=== PATIENT | female | born 1950 | race Caucasian/White ===

== ENCOUNTER 2022-03-03 08:52 | Outpatient (CLI) | payer MEDICARE, SELFPAY ==
--- OUTSIDE RECORDS SUMMARY | 2022-03-03 08:55 | XMS_ITS | Encounter Summary ---
:1950 Author Organization [facility] Address [address] [place] [address] Care Team Providers Name Role Phone Unavailable Primary Care Provider Unavailable Encounter Details Date Type Department Care Team Description 02/22/2016 Hospital Encounter HX RST DERM SURG OP Bella Patel, [facility] Jocelyn [address] [place], [place] [address] (Wo rk) Social History Tobacco Use Types Packs/Day Years Used Date Smoking Tobacco: Never Assessed Alcohol Habits Answer Date Recorded How often do you have a drink containing alcohol? 2-4 times a month 02/10/2022 How many drinks containing alcohol do you have on a Patient refused 02/10/2022 typical day when you are drinking? How often do you have six or more drinks on one Never 02/10/2022 occasion? Social Isolation Answer Date Recorded In a typical week, how many times do you More than three lyle es a week 02/10/2022 talk on the phone with family, friends, or neighbors? How often do you get together with friends More than three t imes a week 02/10/2022 or relatives? How often do you attend restoration or More than 4 times per year 02/10/2022 tenriism services? Do you belong to any clubs or Yes 02/10/2022 organizations such as restoration groups, unions, fraternal or athletic groups, or school groups? How often do you attend meetings of the Patient refused 02/10/2022 clubs or organizations you belong to? Are you now , , , 02/10/2022 , never or living with a partner? Physical Activity Answer Date Recorded On average, how many days per week do you engage in moderate to 7 days 02/10/2022 strenuous exercise (like walking fast, running, jogging, dancing, swimming, biking, or other activities that cause a light or heavy sweat)? On average, how many minutes do you engage in exercise at th is 50 min 02/10/2022 level? Stress Answer Date Recorded Do you feel stress - tense, restless, nervous, or anxious, R ather much 02/10/2022 or unable to sleep at night because your mind is troubled all the time - these days? Financial Resource Strain Answer Date Recorded How hard is it for you to pay for the very basics like Not h ricki at all 02/10/2022 food, housing, medical care, and heating? Intimate Partner Violence Answer Date Recorded Within the last year, have you been afraid of your partner o r No 02/10/2022 ex-partner? Within the last year, have you been humiliated or emotionall y Yes 02/10/2022 abused in other ways by your partner or ex-partner? Within the last year, have you been kicked, hit, slapped, or No 02/10/2022 otherwise physically hurt by your partner or ex-partner? Within the last year, have you been raped or forced to have any No 02/10/2022 kind of sexual activity by your partner or ex-partner? Food Insecurity Answer Date Recorded Within the past 12 months, you worried that your food would Never true 02/10/2022 run out before you got money to buy more. Within the past 12 months, the food you bought just didn't N ever true 02/10/2022 last and you didn't have money to get more. Transportation Needs Answer Date Recorded In the past 12 months, has lack of transportation kept you f rom No 02/10/2022 medical appointments or from getting medications? In the past 12 months, has lack of transportation kept you f rom No 02/10/2022 meetings, work, or getting things needed for daily living? Housing Stability Answer Date Recorded In the last 12 months, was there a time when you were not ab le No 02/10/2022 to pay the mortgage or rent on time? In the last 12 months, how many places have you lived? 1 02/10/2022 In the last 12 months, was there a time when you did not hav e a No 02/10/[address] or slept in a prison (including now)? Sex Assigned at Date Recorded Female 02/16/2019 8:52 AM CDT documented as of this encounter Last Filed Vital Signs Vital Sign Reading Time Taken Comments Blood Pressure 127/79 02/22/2016 7:50 AM CDT Vital sign result from Clinical Notes. Pulse 56 02/22/2016 7:50 AM CDT Vital sign result from Clinical Notes. Temperature - - Respiratory Rate - - Oxygen Saturation - - Inhaled Oxygen Concentration - - Weight - - Height - - Body Mass Index - - documented in this encounter Plan of Treatment Not on filedocumented as of this encounter Visit Diagnoses Not on filedocumented in this encounter
--- OUTSIDE RECORDS SUMMARY | 2022-03-03 08:55 | XMS_ITS | Clinical Summary ---
:1950 Author Organization [facility] Address [address] [place] [address] Care Team Providers Name Role Phone Unavailable Primary Care Provider Unavailable Source Comments Patient records contain information from all sites at [facility]. For routine questions regarding patient records, call [phone] during business hours, M-F 8:00 AM - 5:00 PM Central Time. Record requests for emergency care only can be directed to [phone] at any time.[facility] Allergies No known active allergies Medications Medication Sig Dispensed Refills Start Date End Date Status simvastatin (ZOCOR) 10 Take by mouth 3 11/05/2017 Active mg tablet daily. multivitamin tablet Take 1 tablet by 0 Active mouth daily. fish oil 500 mg capsule Take 500 mg by 0 Active mouth daily. calcium Chew. 0 Active carbonate-vitamin D3 600 mg-10 mcg (400 unit) tablet,chewable alendronate (FOSAMAX) Take 70 mg by 0 02/14/2019 Active 70 mg tablet mouth once a week. vit Take 2 tablets by 0 01/20/2021 A ctive C/E/Zn/coppr/lutein/tra mouth daily. zachery (PRESERVISION AREDS-2 ORAL) Encounters Date Type Specialty Care Team Description 02/14/2022 Office Visit Dermatology Javier Gonzalez M.D. Nevi M ultiple (Primary Dx); Keratosis Sebor rheic from Last 3 Months Family History Medical History Relation Name Comments Skin cancer Brother 1 Skin cancer Brother 2 Relation Name Status Comments Brother 1 Brother 2 Social History Tobacco Use Types Packs/Day Years Used Date Smoking Tobacco: Never Smokeless Tobacco: Never Alcohol Habits Answer Date Recorded How often [...] or relatives? How often do you attend holiness or More than 4 times per year 02/10/2022 rastafari services? Do you belong to any clubs or Yes 02/10/2022 organizations such as holiness groups, unions, fraternal or athletic groups, or [...] place to sleep or slept in a detention (including now)? Education Answer Date Recorded What is the highest level of school you have completed or 12 th grade 12/28/2020 the highest degree you have received? Sex Assigned at Date Recorded Female 02/16/2019 8:52 AM CDT Last Filed Vital Signs Vital Sign Reading Time Taken Comments Blood Pressure 127/79 02/22/2016 7:50 AM CDT Vital sign result from Clinical Notes. Pulse 56 02/22/2016 7:50 AM CDT Vital sign result from Clinical Notes. Temperature - - Respiratory Rate - - Oxygen Saturation - - Inhaled Oxygen Concentration - - Weight - - Height - - Body Mass Index - - Plan of Treatment Health Maintenance Due Date Last Done Comments Bone Density Scan (Osteoporosis 1950 Screen) CT Colonography 1950 Cologuard 1950 FIT 1950 Fasting Glucose for Diabetes 1950 Screening Hepatitis C Screening 1950 Mammogram 05/26/2006 05/26/2005, 04/08/2004, 04/25/2003 Colonoscopy 05/22/2013 05/22/2003 Colorectal Cancer Screening 05/22/2013 Depression Screening (Annual 05/01/2021 PHQ-2) Fall Risk Screen (Annual) 05/01/2021 COVID-19 Vaccine (5 - Booster for 11/26/2021 10/01/2021, , Moderna series) 07/16/2020, Additional history exists Influenza Vaccine (#1) 2022 03/01/2021, 02/20/2020, 02/14/2019, Additional history exists DTaP,Tdap,and Td Vaccines (4 - Td 03/01/2031 03/01/2021, , or Tdap) 07/05/2011, Additional history exists Pneumococcal vaccine (65+ years) Completed 02/14/2019, 10/2017 Zoster Vaccines Completed 04/21/2019, 02/06/2019, 02/01/2019, Additional history exists Insurance Payer Benefit Plan Subscriber ID Effective Phone Address Typ e / Group Dates MEDICARE MEDICARE A [id number] 2017-Pres [address] [place] [address] BLUE CROSS BCBS [place] [id number] 2017-Pres [phone] PO IRIS X Cost Share BLUE SHIELD BLUE COST ent [phone] [place] [address]
--- OUTSIDE RECORDS SUMMARY | 2022-03-03 08:55 | XMS_ITS | Encounter Summary ---
:1950 Author Organization [facility] Address [address] [place] [address] Care Team Providers Name Role Phone Unavailable Primary Care Provider Unavailable Encounter Details Date Type Department Care Team Description 05/22/2003 Hospital Encounter HX NO MAPPING Social History Tobacco Use Types Packs/Day Years [...] or relatives? How often do you attend congregational or More than 4 times per year 02/10/2022 jehovah's witness services? Do you belong to any clubs or Yes 02/10/2022 organizations such as congregational groups, unions, fraternal or athletic groups, or [...] AM CDT documented as of this encounter Plan of Treatment Not on filedocumented as of this encounter Visit Diagnoses Not on filedocumented in this encounter
--- OUTSIDE RECORDS SUMMARY | 2022-03-03 08:55 | XMS_ITS | Encounter Summary ---
:1950 Author Organization [facility] Address [address] [place] [address] Care Team Providers Name Role Phone Unavailable Primary Care Provider Unavailable Reason for Visit Reason Comments Skin Check Outpatient (Routine) - Closed Specialty Diagnoses / Procedures Referred By Contact Refer red To Contact Dermatology Javier Gonzalez M.D . [facility] Region [address] [place] [phone] Referral ID Status Reason Start Date Expiration Date Visits Requ ested Visits Authorized [id number] Closed 02/18/2019 02/18/2020 1 1 Encounter Details Date Type Department Care Team Description 02/03/2020 Office Visit Department of Javier Gonzalez, Bere Headley ple (Primary Dx); Dermatology in [place] Keratosis Seborrheic; [place], [place] [address] [facility] Cancer Skin Basal Cell Personal History [address] [place] [phone] Social History Tobacco Use Types Packs/Day Years [...] or relatives? How often do you attend hinduism or More than 4 times per year 02/10/2022 hindu services? Do you belong to any clubs or Yes 02/10/2022 organizations such as hinduism groups, unions, fraHeyStaks or athletic groups, or school groups? How [...] place to sleep or slept in a longterm (including now)? Sex Assigned at Date Recorded Female 02/16/2019 8:52 AM CDT documented as of this encounter Progress Notes Javier Gonzalez M.D. - 02/03/2020 9:00 AM CDT SUBJECTIVE CHIEF COMPLAINT / REASON FOR VISIT Skin cancer recheck HISTORY OF PRESENT ILLNESS Ms. Annamarie Bhat is a 69 y.o. female who presents today for a full skin cancer screening examination. The patient was last seen by me in Dermatology clinic on 02/18/2019 at which time she was seen for a recheck of several nevi which we felt were benign. 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 Patel at [facility] on 02/22/16. The patientdenies a personal or family history for melanoma. She reports regular use of sunscreen spf 30+. No Known Allergies MEDICAL HISTORY 1. Nasal tip: Nodular basal cell carcinoma, status post Mohs surgery and full- thickness skin graft closure by Dr. Patel at [facility] on 02/22/16 ?? FAMILY HISTORY No family history for melanoma OBJECTIVE PHYSICAL EXAMINATION General: Awake, alert, in no acute distress, and with appropriate affect. Eyes: No scleral injection or icterus. No eyelid abnormalities. Lymph: No lower extremity edema. Skin: I have examined the scalp, face, neck, chest, abdomen, back, bilateral upper extremities, and bilateral lower extremities. My scribe Radha was present for the full exam today. Examination of the left lateral buttock reveals a 2 mm x 2.5 mm brown nevus with slight asymmetry which looks benign on clinical exam and dermsocopy. Examination of the right superior buttock reveals a3.5 mm x 3.5 mm uniformly pigmented brown nevus which looks benign on clinical exam and dermoscopy. Examination of the nasal tip reveals a graft with no clinical evidence for local recurrence of bcc. Examination of face, trunk, and extremities reveals multiple benign appearing nevi and lentigines, and multiple seborrheic keratosis,including several flat SKs involving the face. Examination of the right triceps reveals a dermatofibroma. Examination today reveals no suspicious lesions for skin cancer. ASSESSMENT / PLAN #1 Face, trunk, and extremities : Multiple benign appearing nevi and lentigines The ABCDE criteria for melanoma was reviewed with the patient. None of the patient's nevi reach the clinical threshold for biopsy. I recommend continued sun protection, self-skin examinations, and observation. Should any of the patient's nevi change in size, color, texture, or shape or develop symptoms such as itching or bleeding, I recommend an immediate return visit for reassessment. #2 Face, trunk, and extremities: Seborrheic keratosis The benign nature of the skin lesion(s) was discussed with the patient. No treatment is required. I recommend continued observation. Should symptoms or changes develop related to this condition, I would recommend a return visit for reassessment. #3 Nasal tip: History of nodular basal cell carcinoma status post Mohs surgery and full-thickness skin graft closure by Dr. Patel at [facility] on 02/22/16, no recurrence Examination today reveals no clinical evidence of recurrence. Follow up immediately if changes are noticed during monthly self examination. Otherwise followup in 6 months. PATIENT EDUCATION: Ready to learn. No apparent learning barriers were identified. Learning preferences include listening. Explained diagnosis and treatment plan; patient/guardian of patient expressed understanding of thecontent. By signing my name below, I, Rosalina Ray, attest that this documentation has been prepared underthe direction and in the presence of Javier Gonzalez M.D. Electronically Signed: manjula Key. 02/03/2020. I, Javier Gonzalez M.D., personally performed the services described in this documentation. All medical record entries made by the scribe were at my direction and in my presence. I have reviewed the chart and discharge instructions (if applicable) and agree that the record reflects my personal performance and is accurate and complete. Javier Gonzalez M.D. 02/02. documented in this encounter Plan of Treatment Not on filedocumented as of this encounter Visit Diagnoses Diagnosis Nevi Multiple - Primary Keratosis Seborrheic Cancer Skin Basal Cell Personal History documented in this encounter
--- OUTSIDE RECORDS SUMMARY | 2022-03-03 08:55 | XMS_ITS | Encounter Summary ---
:1950 Author Organization [facility] Address [address] [place] [address] Care Team Providers Name Role Phone Unavailable Primary Care Provider Unavailable Reason for Referral Outpatient (Routine) - Closed Specialty Diagnoses / Procedures Referred By Contact Refer red To Contact Dermatology [facility] Gonzalez [facility].D . [facility] [address] [place] [phone] Referral ID Status Reason Start Date Expiration Date Visits Requ ested Visits Authorized [id number] Closed 02/18/2019 02/18/2020 1 1 Scheduling Instructions Skin cancer recheck exam in 6 months Reason for Visit Reason Comments Follow-up spot on buttocks Outpatient (Routine) - Closed Specialty Diagnoses / Procedures Referred By Contact Refer red To Contact Dermatology Javier Gonzalez M.D . [facility] Region [address] [place] [phone] Referral ID Status Reason Start Date Expiration Date Visits Requ ested Visits Authorized [id number] Closed 10/01/2018 10/01/2019 1 1 Encounter Details Date Type Department Care Team Description 02/18/2019 Office Visit Department of Javier Gonzalez Nevi Multi ple (Primary Dermatology in [place] ) [place], [place] [address] [place] [phone] Social History Tobacco Use Types Packs/Day Years [...] or relatives? How often do you attend baptist or More than 4 times per year 02/10/2022 latter day services? Do you belong to any clubs or Yes 02/10/2022 organizations such as baptist groups, unions, fraternal or athletic groups, or [...] place to sleep or slept in a usp (including now)? Sex Assigned at Date Recorded Female 02/16/2019 8:52 AM CDT documented as of this encounter Progress Notes Javier Gonzalez M.D. - 02/18/2019 9:45 AM CDT SUBJECTIVE CHIEF COMPLAINT/REASON FOR VISIT Recheck lesion involving left lateral buttock HISTORY OF PRESENT ILLNESS Ms. Annamarie Bhat is a 68 y.o. female who presents for recheck of a lesion involving the left lateral buttock. During our last visit on 10/01/18, the lesion was said to be a benign-appearing nevus with slight asymmetry. 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 Patel at [facility]. 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 The patient denies a personal or family history for melanoma. No new or changing lesions are noted today. No Known Allergies MEDICAL HISTORY 1. Nodular basal cell carcinoma involving nasal tip, status post Mohs surgery and full-thickness skin graft closure by Dr. Patel at [facility] on 02/22/16 2. Negative for melanoma FAMILY HISTORY No family history for melanoma OBJECTIVE PHYSICAL EXAMINATION General: Awake, alert, in no acute distress, and with appropriate affect. Skin: Examination of the left lateral buttock reveals a 2 mm x 2.5 mm brown nevus with slight asymmetry. Examination of the right superior buttock reveals a 3.5 mm x 3.5 mm uniformly pigmented brown nevus. My nurse done served as a model maker fiberglass during the exam. ASSESSMENT/PLAN #1 Left lateral buttock and right superior buttock: Benign nevi The ABCDE criteria for melanoma was reviewed with the patient. None of the patient's nevi reach the clinical threshold for biopsy. I recommend continued sun protection, self-skin examinations, and observation. Should any of the patient's nevi change in size, color, texture, or shape or develop symptoms such as itching or bleeding, I recommend an immediate return visit for reassessment. Follow up in July 2019 for recheck of the stated lesions as well as a full skin cancer screening, or immediately if any new or changing lesions are noted. PATIENT EDUCATION: Ready to learn. No apparent learning barriers were identified. Learning preferences include listening. Explained diagnosis and treatment plan; patient/guardian of patient expressed understanding of thecontent. By signing my name below, Deric Millan, attest that this documentation has been prepared under thedirection and in the presence of Javier Gonzalez M.D. Electronically Signed: manjula Guerrero. 02/18/2019. 9:45 AM. Javier Millan M.D., personally performed the services described in this documentation. All medical record entries made by the scribe were at my direction and in my presence. I have reviewed the chart and discharge instructions (if applicable) and agree that the record reflects my personal performance and is accurate and complete. Javier Gonzalez M.D. . 02/18/2019. 9:46 AM. documented in this encounter Plan of Treatment Scheduled Referrals Name Type Priority Associated Order Schedule Diagnoses Dermatology office Outpatient Referral Routine Ex pected: visit (clinic) 08/20/2019 (Approximate), Expires: 02/18/2022 documented as of this encounter Visit Diagnoses Diagnosis Nevi Multiple - Primary documented in this encounter
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
--- OUTSIDE RECORDS SUMMARY | 2022-03-03 08:55 | XMS_ITS | Encounter Summary ---
:1950 Author Organization [facility] Address [address] [place] [address] Care Team Providers Name Role Phone Unavailable Primary Care Provider Unavailable Reason for Visit Reason Comments Lesion small white speck noted near side of former BCC on nose so back for reassessment Appointment Request (Routine) - Closed Specialty Diagnoses / Procedures Referred By Contact Refer red To Contact Dermatology Referral ID Status Reason Start Date Expiration Date Visits Requ ested Visits Authorized [id number] Closed 12/14/2017 12/14/2018 1 Encounter Details Date Type Department Care Team Description 01/09/2018 Office Visit Department of Javier Gonzalez, Cancer Ski n Basal Cell Dermatology in [place] Personal History [place], [place] [address] [facility] (Primary Dx) [address] [place] [phone] Social History Tobacco Use Types Packs/Day Years [...] or relatives? How often do you attend orthodoxy or More than 4 times per year 02/10/2022 islam services? Do you belong to any clubs or Yes 02/10/2022 organizations such as orthodoxy groups, unions, fraternal or athletic groups, or [...] place to sleep or slept in a retirement (including now)? Sex Assigned at Date Recorded Female 02/16/2019 8:52 AM CDT documented as of this encounter Progress Notes Javier Gonzalez M.D. - 01/09/2018 2:00 PM CDT CHIEF COMPLAINT/REASON FOR VISIT Skin cancer recheck HISTORY OF PRESENT ILLNESS Ms. Annamarie Bhat is a 67 y.o. female who presents today for evaluation of a whitish colored lesion involving the nasal tip graft at the previous basal cell carcinoma surgical site. The patient has a history of basal cell carcinoma treated with surgery and skin graft done in plastic surgery at [facility] in January 2016 from her nasal tip. During her last visit with me on 08/23/17 we biopsied a lesion on her right rib cage. Dermatopathology showed it was a lentiginous compound nevus with moderateatypia and peripheral borders appeared free of involvement. The patient noticed a small white spot on her nose near her basal cell carcinoma excision scar and graft about one month ago. The small whitespot has not changed since she first noticed it. She denies any pain, itching or spontaneous bleeding from this area. No Known Allergies PAST MEDICAL HISTORY Basal cell carcinoma treated with surgery and skin graft done in plastic surgery at [facility] in January 2016 from her nasal tip FAMILY HISTORY No family history for melanoma. PHYSICAL EXAM General: Awake, alert, in no acute distress, and with appropriate affect. Eyes: No scleral injection or icterus. No eyelid abnormalities. Skin: Examination of the edge of the graft at the four 'o'clock position reveals a small white miliawith a diameter of 1-1.5 mm. No evidence for recurrence of prior basal cell carcinoma. Patient had afull skin cancer screening exam 08/21/17 and this was not repeated today. IMPRESSION/REPORT/PLAN #1 Nasal tip: History of basal cell carcinoma surgically removed with skin graft done by plastic surgery at [facility] in January 2016 from her nasal tip No evidence for recurrence of basal cell carcinoma. Benign nature of milia discussed no treatment needed. Follow-up immediately if any evidence for recurrence of her BCC or any other changes. Otherwisefollow up in July 2018 for a full skin cancer screening exam. #2 Nasal tip: Milia Benign nature of lesion discussed in no treatment needed. I discussed precautions with the patient including pain, itching or development of dilated blood vessels. If she develops any of these changes involving this area,she should return immediately for a recheck. The patient understands. PATIENT EDUCATION Ready to learn. No apparent learning barriers were identified. Learning preferences include listening. Explained diagnosis and treatment plan; patient/guardian of patient expressed understanding of thecontent. By signing my name below, I, Moose Knapp, attest that this documentation has been prepared underthe direction and in the presence of Javier Gonzalez M.D.. Electronically Signed: manjula Cruz. 01/09/2018. 2:02 PM . I, Javier Gonzalez M.D., personally performed the services described in this documentation. All medical record entries made by the scribe were at my direction and in my presence. I have reviewed the chart and discharge instructions (if applicable) and agree that the record reflects my personal performance and is accurate and complete. Javier Gonzalez M.D. . 01/09/2018. 2:36 PM. documented in this encounter Plan of Treatment Not on filedocumented as of this encounter Visit Diagnoses Diagnosis Cancer Skin Basal Cell Personal History - Primary documented in this encounter
--- OUTSIDE RECORDS SUMMARY | 2022-03-03 08:55 | XMS_ITS | Encounter Summary ---
:1950 Author Organization [facility] Address [address] [place] [address] Care Team Providers Name Role Phone Unavailable Primary Care Provider Unavailable Reason for Visit Reason Comments Skin Check Appointment Request (Routine) - Closed Specialty Diagnoses / Procedures Referred By Contact Refer red To Contact Dermatology Referral ID Status Reason Start Date Expiration Date Visits Requ ested Visits Authorized [id number] Closed 11/19/2021 11/19/2022 1 1 Encounter Details Date Type Department Care Team Description 02/14/2022 Office Visit Department of Javier Gonzalez, Bere knight (Primary Dx); Dermatology in [place] Keratosis Seborrheic [place], [place] [address] [place] [phone] Social History Tobacco Use Types Packs/Day Years [...] or relatives? How often do you attend protestant or More than 4 times per year 02/10/2022 christianity services? Do you belong to any clubs or Yes 02/10/2022 organizations such as protestant groups, unions, fraternal or athletic groups, or [...] place to sleep or slept in a half-way (including now)? Education Answer Date Recorded What is the highest level of school you have completed or 12 th grade 12/28/2020 the highest degree you have received? Sex Assigned at Date Recorded Female 02/16/2019 8:52 AM CDT documented as of this encounter Progress Notes Javier Gonzalez M.D. - 02/14/2022 8:45 AM CDT SUBJECTIVE CHIEF COMPLAINT / REASON FOR VISIT Full skin cancer screening HISTORY OF PRESENT ILLNESS Annamarie Bhat is a pleasant 71 y.o. female who presents for a full skin cancer screening. The patient was last seen by me in Dermatology clinic on 12/29/20. 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 Patel at [facility]. She denies a personal or family history for melanoma. She uses sunscreen. She denies any new or changing lesions today. MEDICAL HISTORY 1. Nasal tip: History of nodular basal cell carcinoma, status post Mohs surgery and full-thickness skin graft closure on 02/22/[address] Patel at [facility] 2. Negative for melanoma FAMILY HISTORY Negative for melanoma OBJECTIVE PHYSICAL EXAMINATION General: Awake, alert, in no acute distress, and with appropriate affect. Eyes: No scleral injection or icterus. No eyelid abnormalities. Lymph: No lower extremity edema. Skin: I have examined the scalp, face, neck, chest, abdomen, back, bilateral upper extremities, and bilateral lower extremities. My scribe (Poly) served as a senior media planner for the entirety of the exam. Examination of the nasal tip reveals no evidence for recurrence of basal cell carcinoma x 1. Examination of the face, trunk and extremities reveals multiple benign-appearing nevi, lentigines and seborrheic keratoses. Examination of the left lower central chest reveals a 4 x 4 mm small angioma. Examination today reveals no suspicious lesions for skin cancer. ASSESSMENT / PLAN #1 Face, trunk and extremities: Multiple nevi and lentigines The ABCDE criteria for [...] immediate return visit for reassessment. #2 Face, trunk and extremities: Seborrheic keratosis The benign nature of the skin lesion(s) was discussed with the patient. No treatment is required. I recommend continued observation. Should this lesion change in size, color, texture, or shape or develop symptoms such as itching or bleeding, I recommend an immediate return visit for reassessment. #3 Left lower central chest: Small angioma The benign nature of the skin lesion(s) was discussed with the patient. No treatment is required. I recommend continued observation. Should this lesion change in size, color, texture, or shape or develop symptoms such as itching or bleeding, I recommend an immediate return visit for reassessment. #4 Nasal tip: History of nodular basal cell carcinoma, status post Mohs surgery and full-thickness skin graft closure on 02/22/[address] Patel at [facility], no recurrence No clinical evidence of local recurrence today. Recommended monthly self-skin examinations to evaluate for new, changing, symptomatic, or otherwise worrisome lesions. Signs and symptoms of skin cancer discussed. Photoprotection was recommended. Return to Dermatology in 12 months for a full skin exam or immediately if any new or changing lesions are noted. PATIENT EDUCATION: Ready to learn. No apparent learning barriers were identified. Learning preferences include listening. Explained diagnosis and treatment plan; patient/guardian of patient expressed understanding of thecontent. By signing my name below, I, Poly Ha, attest that this documentation has been prepared under the direction and in the presence of Javier Gonzalez M.D. Electronically Signed: manjula Jacobo. 02/08/2022. 11:03 AM CDT. I, Javier Gonzalez M.D., personally performed [...] Diagnosis Nevi Multiple - Primary Keratosis Seborrheic documented in this encounter
--- OUTSIDE RECORDS SUMMARY | 2022-03-03 08:55 | XMS_ITS | Encounter Summary ---
:1950 Author Organization [facility] Address [address] [place] [address] Care Team Providers Name Role Phone Unavailable Primary Care Provider Unavailable Encounter Details Date Type Department Care Team Description 02/18/2019 Ancillary Procedure Department of Dermatology Social History Tobacco Use Types Packs/Day Years [...] or relatives? How often do you attend caodaism or More than 4 times per year 02/10/2022 restorationist services? Do you belong to any clubs or Yes 02/10/2022 organizations such as caodaism groups, unions, fraternal or athletic groups, or [...] place to sleep or slept in a nursing home (including now)? Sex Assigned at Date Recorded Female 02/16/2019 8:52 AM CDT documented as of this encounter Plan of Treatment Not on filedocumented as of this encounter Procedures Procedure Name Priority Date/Time Associated Comments Diagnosis DERMATOLOGY IMAGE Routine 02/18/2019 9:48 AM Resu lts for this EXAM CDT procedure are i n the results section. documented in this encounter Results buttocks, left 231-Dermatology Image Exam (02/18/2019 9:48 AM CDT) Specimen (Source) Anatomical Collection Method Collection Time Re ceived Time Location / / Volume Laterality 02/18/2019 9:46 AM CDT Narrative [facility] - 02/18/2019 9:48 AM CDT This order has been created and auto-finalized to support the import of images acquired without order. The clini gopi documentation to support these images can be found on the encounter desmond t produced images. Provider Not In System IMG NON RAD IMAGING PROCEDUR ES Performing Organization Address City/State/ZIP Code Phon e Number [facility] NA documented in this encounter Visit Diagnoses Not on filedocumented in this encounter
--- OUTSIDE RECORDS SUMMARY | 2022-03-03 08:55 | XMS_ITS | Encounter Summary ---
:1950 Author Organization [facility] Address [address] [place] [address] Care Team Providers Name Role Phone Unavailable Primary Care Provider Unavailable Reason for Referral Outpatient (Routine) - Closed Specialty Diagnoses / Procedures Referred By Contact Refer red To Contact Dermatology Javier Gonzalez M.D . [facility] [address] [place] [address] Referral ID Status Reason Start Date Expiration Date Visits Requ ested Visits Authorized [id number] Closed 10/01/2018 10/01/2019 1 1 Reason for Visit Reason Comments Skin Check Appointment Request (Routine) - Closed Specialty Diagnoses / Procedures Referred By Contact Refer red To Contact Dermatology Referral ID Status Reason Start Date Expiration Date Visits Requ ested Visits Authorized [id number] Closed 07/19/2018 07/19/2019 1 Encounter Details Date Type Department Care Team Description 10/01/2018 Office Visit Department of Javier Gonzalez Nevi Multi ple (Primary Dx); Dermatology in [place] Cancer Skin Basal Cell Personal History [place], [place] [address] [phone] Social History Tobacco Use Types Packs/Day Years [...] or relatives? How often do you attend uatsdin or More than 4 times per year 02/10/2022 jehovah's witness services? Do you belong to any clubs or Yes 02/10/2022 organizations such as uatsdin groups, unions, fraLemonCrate or athletic groups, or school groups? How [...] place to sleep or slept in a halfway (including now)? Sex Assigned at Date Recorded Female 02/16/2019 8:52 AM CDT documented as of this encounter Progress Notes Javier Gonzalez M.D. - 10/01/2018 11:15 AM CDT SUBJECTIVE CHIEF COMPLAINT/REASON FOR VISIT Skin cancer screening exam HISTORY OF PRESENT ILLNESS Ms. Annamarie Bhat is a 68 y.o. female who presents today for a full skin cancer screening examination. The patient has a history of nodular basal cell carcinoma of the nasal tip status post Mohs surgery and full-thickness skin graft closure by Dr. Patel at [facility] on 02/22/16. 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 There is no personal or family history for melanoma. The patient denies any lesions of concern today. No Known Allergies MEDICAL HISTORY 1. Nodular basal cell carcinoma of the nasal tip status post Mohs surgery and full-thickness skin graft closure by Dr. Patel at [facility] on 02/22/16 FAMILY HISTORY No family history for melanoma OBJECTIVE PHYSICAL EXAMINATION General: Awake, alert, in no acute distress, and with appropriate affect. Eyes: No scleral injection or icterus. No eyelid abnormalities. Lymph: No lower extremity edema. Skin: I have examined the scalp, face, neck, chest, abdomen, back, bilateral upper extremities, and bilateral lower extremities. My scribe, Norma, was present as broker associate during the entire exam. Examination of the nasal tip reveals no evidence of recurrence of basal cell carcinoma. Examination of the left lateral buttock reveals a 2 mm x 2.5 mm brown nevus with slight asymmetry that appears benign onclinical examination and dermoscopy. Examination of the trunk and extremities otherwise reveals multiple benign nevi. No suspicious lesions for skin cancer today. ASSESSMENT/PLAN #1 Multiple nevi The ABCDE criteria for melanoma was reviewed with the patient. None of the patient's nevi reach the clinical threshold for biopsy. We will continue to observe the nevus involving the left lateral buttock. This nevus appears benign on clinical examination and dermoscopy today. I recommend continued sun protection, self-skin examinations, and observation. Should any of the patient's nevi change in size, color, texture, or shape or develop symptoms such as itching or bleeding, I recommend an immediate return visit for reassessment. Otherwise follow up for recheck of the nevus involving the left lateral buttock in 4 months. #2 Nasal tip: History of nodular basal cell carcinoma status post Mohs surgery and full-thickness skin graft closure by Dr. Patel at [facility] on 02/22/16 No evidence for recurrence of basal cell carcinoma on clinical exam today. Follow-up immediately if any changes or evidence for recurrence. PATIENT EDUCATION: Ready to learn. No apparent learning barriers were identified. Learning preferences include listening. Explained diagnosis and treatment plan; patient/guardian of patient expressed understanding of thecontent. By signing my name below, Norma Millan, attest that this documentation has been prepared under thedirection and in the presence of Javier Gonzalez M.D. Electronically Signed: manjula Tucker. 10/01/2018. 11:09 AM . Javier Millan M.D., personally performed the services described in this documentation. All medical record entries made by the scribe were at my direction and in my presence. I have reviewed the chart and discharge instructions (if applicable) and agree that the record reflects my personal performance and is accurate and complete. Javier Gonzalez M.D. . 10/01/2018. 11:33 AM. documented in this encounter Plan of Treatment Scheduled Referrals Name Type Priority Associated Order Schedule Diagnoses Dermatology office Outpatient Referral Routine Ex pected: visit (clinic) 10/01/2018 (Approximate), Expires: 10/01/2021 documented as of this encounter Visit Diagnoses Diagnosis Nevi Multiple - Primary Cancer Skin Basal Cell Personal History documented in this encounter
--- NOTE | 2022-03-03 09:15 | CRLHL7_ITS ---
For Patients: As a result of the Century Cures Act, medical imaging exams and procedure reports are released immediately into your electronic medical record. You may view this report before your referring provider. If you have questions, please contact your health care provider. BILATERAL SCREENING MAMMOGRAM WITH COMPUTER-AIDED DETECTION AND TOMOSYNTHESIS TECHNIQUE: CC and MLO views were obtained. These mammographic images have been obtained using full-field digital technique. These mammographic images were interpreted with the benefit of computer-aided detection. Breast Tomosynthesis was used in this interpretation. COMPARISON FILM: 02/22/21, 02/20/20, 02/14/19. FINDINGS: The breasts are heterogeneously dense, which may obscure small masses IMPRESSION: There is no radiographic evidence for malignancy. ASSESSMENT: BI-RADS Category 2: Benign RECOMMENDATION: Routine screening mammogram in 1 year. A lay language report of this examination will be provided to the patient. Frederick Menon M.D. Diagnostic Radiologist [email or web address] MARCE/fozia Transcribed: 7:47 p.m. IRA/Dictated by: Frederick Menon MD @ 03/03/2022 11:09:00 AM (Electronically Signed)
== END 2022-03-03 08:53 | disposition home or self-care (01) ==
LOC: MAMMO 08:53
PROVIDERS: PCP Internal Medicine; Visit Provider Internal Medicine
DX: Z12.31 Encounter for screening mammogram for malignant neoplasm of breast (principal); R92.2 Inconclusive mammogram
CPT/HCPCS: 77063; 77067; 80061; 82306

== ENCOUNTER 2022-05-16 11:15 | Outpatient (RCR) | payer MEDICARE, BC, SELFPAY ==
--- NOTE | 2022-04-11 15:49 | PT.OPEX ---
PT [place] Outpatient Eval PT [facility] Outpatient Eval Start: 04/11/22 13:19 Freq: Status: Active Protocol: Document 04/11/22 13:21 ENM (Rec: 04/11/22 15:40 ENM [id number]) E-signed By Ariella Hunter, DPT Physical Therapy Outpatient Evaluation Insurance Information Recert Due Date 07/04/22 Insurance Name Medicare B Medical Diagnosis stiffness of unspecified shoulder, not elsewhere classified Treating Diagnosis decreased shoulder ROM, right shoulder pain, impaired posture, decreased shoulder strength Referring MD Pappas Subjective Subjective Patient presents to PT for pain and tightness in the right shoulder that has been present for a year. With reaching up or behind the back there is a quick significant pain then it goes away. Went to see an orthopedic doctor at [facility] last week and had an xray which showed some degenerative changes. Was told to take advil for the pain but she hasn't had to take anything. With laying in bed on it at night will have some pain but when she moves it then the pain improves. Putting on sweaters can also be difficult with getting her right arm into the sleeve. Has not been able to paint her house due to the right shoulder which is something she would like to get back to. PMHx: arthritis Pain Comments at its best: no pain at its worse: burst of pain 5/ 10 easing: advil aggravating: reaching back, wiping self Current Work Status Retired Objective Other/Pertinent Objective ROM: AROM shoulder flexion L 138 with tightness R 128 with tightness and a little tingle abduction L 150 with tightness R 112 w tightness and discomfort IR L S2 R mid glute ER L T3 R C6 w discomfort, hesitance, and crepitus Cervical flexion, ext WNL no pains SB to the L limited and tight compared to the R Strength: shoulder flexion 4/5 B shoulder abduction 4/5 B shoulder IR0 4-/5 B shoulder ER0 4-/5 B discomfort in armpit area Palpation/joint mobility: posterior and inferior glide of GHJ hypomobile bilaterally but equal CPA thoracic spine hypomobile throughout + for pain with palpation of R biceps tendon Posture: increased thoracic kyphosis and shoulder protraction B Special tests: neers + on R for discomfort, L just tightness jasmine danielle - B Functional Test Performed & Score SPADI: pain 30/50 60% disability 49/80 61.25% total 79/130 Assessment Assessment/Impression Patient is a 71 year old female presenting with one year history of right shoulder pain. Their primary complaint is of pain and tightness with reaching overhead or behind the back. She has not tried any other interventions to date and is not taking any pain medication . Had an xray which showed degenerative changes at the right shoulder. Upon assessment patients concordant pains brought on with right shoulder AROM most painful and difficult into abduction. Range of motion is most limited into IR. Although bilateral shoulder ROM is limited as well as joint mobility it is not symptomatic on the left side. Significant stiffness throughout thoracic spine and increased kyphosis/ shoulder protraction. Special testing + for neers on the R. Symptoms consistent with subacromial pain syndrome. Patient would greatly benefit from skilled PT to address impairments stated above in order to be able to perform all household duties and ADLs/ self cares without significant discomfort or difficulty. Plan of Care Rehabilitation Potential Good Physical Therapy Goals In 5-6 visits: 1. Patient will be IND with HEP and self management of symptoms 2. Patient will display pain free shoulder flexion to >130 on the right in order to reach into higher cabinets without significant discomfort or difficulty 3. Patient will be able to dress herself with only mild pain 4/7 days of the week for improved self cares/ADLS 4. Patient will be able to comfortably lay at night without shoulder pain for improved sleep hygiene 5. Patient will improve SPADI from 79 to 66 (MDC 13) to demonstrate improvements in QOL Coordination/Communication With Referral Source Treatment Plan/Direct Interventions Ice/Cold/Vasopneumatic,Joint Mobilization,Manual Therapy, Neuromuscular Re-ed,Self-Care/ Home Management,Therapeutic Activities,Therapeutic Exercises Frequency/Duration 1x a week for 5-6 visits Patient Will Be Discharged From Therapy Completion of LTG(s), Independent w/HEP Evaluation Billing Untimed Code Treatment Minutes 25 Complexity Low Certification Information Initial Certification Date 04/11/22 Ending Certification Date 07/04/22 Provider Signature Shows Agreement With POC & Medical Necessity Physician Signature & Date Requested Please Sign/Date Here Physician Comment/Change : Physician NPI Number #
== END 2022-08-02 09:24 | disposition home or self-care (01) ==
PROVIDERS: PCP Internal Medicine; Visit Provider Internal Medicine
DX: M25.619 Stiffness of unspecified shoulder, not elsewhere classified (principal); M25.511 Pain in right shoulder; Z74.09 Other reduced mobility; Z51.89 Encounter for other specified aftercare
CPT/HCPCS: 97110; 97140; 97161

== ENCOUNTER 2022-12-22 07:25 | Outpatient (CLI) | payer MEDICARE, BC, SELFPAY ==
--- NOTE | 2022-12-22 07:02 | W.ANESCHARGE ---
Anesthesia Charges Start Date/Time Anesthesia Start Date: 12/22/22 Anesthesia Start Time: 07:55 Stop Date/Time Anesthesia Stop Date: 12/22/22 Anesthesia Stop Time: 08:40 Summary Extremes of Age - Over 70 or under 1: MDA
--- NOTE | 2022-12-22 10:25 | W.ANESCHARGE ---
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
== END 2022-12-22 07:26 | disposition home or self-care (01) ==
LOC: OP CLINIC 07:26
PROVIDERS: PCP Internal Medicine; Visit Provider Surgery
DX: Z12.11 Encounter for screening for malignant neoplasm of colon (principal); K63.5 Polyp of colon; K64.4 Residual hemorrhoidal skin tags
CPT/HCPCS: 00811; 45385; 88305; 99100; J2704

== ENCOUNTER 2023-03-02 11:07 | Outpatient (CLI) | payer MEDICARE, BC, SELFPAY | END 2023-03-02 11:08 | disposition home or self-care (01) | LOC: NFLDREF 03-06 06:52 | PROVIDERS: PCP Internal Medicine; Referring Provider Internal Medicine; Visit Provider Internal Medicine | DX: M81.0 Age-related osteoporosis without current pathological fracture (principal); E78.5 Hyperlipidemia, unspecified | CPT/HCPCS: 80061; 82306 ==

== ENCOUNTER 2023-03-15 09:01 | Outpatient (CLI) | payer MEDICARE, BC, SELFPAY ==
--- NOTE | 2023-03-15 09:15 | CRLHL7_ITS ---
For Patients: As a result of the Century Cures Act, medical imaging exams and procedure reports are released immediately into your electronic medical record. You may view this report before your referring provider. If you have questions, please contact your health care provider. BILATERAL SCREENING MAMMOGRAM WITH COMPUTER-AIDED DETECTION TECHNIQUE: CC and MLO views were obtained. These mammographic images have been obtained using full-field digital technique. These mammographic images were interpreted with the benefit of computer-aided detection. COMPARISON FILM: 03/03/22, 02/22/21, 02/20/20. FINDINGS: There are scattered areas of fibroglandular density IMPRESSION: There is no radiographic evidence for malignancy. ASSESSMENT: BI-RADS Category 1: Negative RECOMMENDATION: Routine screening mammogram in 1 year. A lay language report of this examination will be provided to the patient. Frederick Menon M.D. Diagnostic Radiologist [email or web address] IRA/Dictated by: Frederick Menon MD @ 03/15/2023 10:58:00 AM (Electronically Signed)
== END 2023-03-15 09:02 | disposition home or self-care (01) ==
LOC: MAMMO 09:02
PROVIDERS: PCP Internal Medicine; Visit Provider Internal Medicine
DX: Z12.31 Encounter for screening mammogram for malignant neoplasm of breast (principal)
CPT/HCPCS: 77063; 77067

== ENCOUNTER 2024-01-08 07:24 | Outpatient (CLI) | payer MEDICARE, BC, SELFPAY ==
--- OUTSIDE RECORDS SUMMARY | 2024-01-08 07:26 | XMS_ITS | Referral Summary ---
Author Organization [facility] Address [address] [place] [address] Care Team Providers Care Gyroscopic Engineering Technician Name Role Phone Unavailable Primary Care Provider Unavailabl e Source Comments Patient records contain information from all sites at [facility]. For routine questions regarding patient records, call [phone] during business hours, M-F 8:00 AM - 5:00 PM Central Time. Record requests for emergency care only can be directed to [phone] at any time.[facility] Allergies No known active allergies Medications Medication Sig Dispensed Refills Start Date End Date Status simvastatin (ZOCOR) 10 mg tablet Take by mouth daily. 3 11/05/2017 Active multivitamin tablet Take 1 tablet by mouth daily. Active fish oil 500 mg capsule Take 500 mg by mouth daily. Active calcium carbonate-vitamin D3 600 mg-10 mcg (400 unit) tablet,chewable Chew. Act hailey alendronate (FOSAMAX) 70 mg tablet Take 70 mg by mouth once a week. 0 02/14/2019 Active vit C/E/Zn/coppr/lutein/ze axan (PRESERVISION AREDS-2 ORAL) Take 2 tablets by mouth daily. 01/20/2021 Active Social History Tobacco Use Types Packs/Day Years Used Date Smoking Tobacco: Never Smokeless Tobacco: Never Tobacco Cessation:Counseling Given: Not Answered Alcohol Use Standard Drinks/Week Comments Yes 2 (1 standard drink = 0.6 oz pur e alcohol) [facility] Utilities Answer Date Recorded In the past 12 months has [facility] ideacts innovations, gas, oil, or water [employer] threatened to shut off services in your home? No 09/11/2023 Humiliation, Afraid, Rape, and Kick questionnair e Answer Date Recorded Within the last year, have y ou been afraid of your partner or ex-partner? No 02/10/2022 Within the last year, have y ou been humiliated or emotionally abused in other ways by your partner or ex-partner? Yes Within the last year, have y ou been kicked, hit, slapped, or otherwise physically hurt by your partner or ex-partner? No 02/10/2022 Within the last year, have y ou been raped or forced to have any kind of sexual activity by your partner or ex-partner? No 02/10/2022 Social Connection and Isolat ion Panel [NHANES] Answer Date Recorded In a typical week, how many times do you talk on the phone with family, friends, or neighbors? More than three times a week 02/10/2022 How often do you get togethe r with friends or relatives? More than three times a week 02/10/2022 How often do you attend [facility] or jehovah's witness services? More than 4 times per year 02/10/2022 Do you belong to any clubs o r organizations such as cheondoism groups, unions, fraternal or athletic groups, or school groups? Yes 02/10/2022 How often do you attend meet ings of the clubs or organizations you belong to? Patient declined 02/10/2022 Are you , , di vorced, , never , or living with a partner? 02/10/2022 AUDIT-C Answer Date Recorded Q1: How often do you have a drink containing alc ohol? 2-4 times a month 02/10/2022 Q2: How many drinks containi ng alcohol do you have on a typical day when you are drinking? Patient declined 02/10/2022 Q3: How often do you have si x or more drinks on one occasion? Never 02/10/2022 Overall Financial Resource Strain (CARDIA) Answe r Date Recorded How hard is it for you to pa y for the very basics like food, housing, medical care, and heating? Not hard at all 02/10/2022 [facility] [place] of Occupat ional Health - Occupational Stress Questionnaire Answer Date Recorded Do you feel stress - tense, restless, nervous, or anxious, or unable to sleep at night because your mind is troubled all the time - these days? Rather much 02/10/2022 Exercise Vital Sign Answer Date Recorde d On average, how many days pe r week do you engage in moderate to strenuous exercise (like a brisk walk)? 7 days 09/11/2023 On average, how many minutes do you engage in exercise at this level? 60 min 09/11/2023 Hunger Vital Sign Answer Date Recorded Within the past 12 months, y ou worried that your food would run out before you got the money to buy more. Never true 09/11/19 24 Within the past 12 months, t he food you bought just didn't last and you didn't have money to get more. Never true 09/11/2023 PRAPARE - Transportation Answer Date Re corded In the past 12 months, has l ack of transportation kept you from medical appointments or from getting medications? No 08/29 In the past 12 months, has l ack of transportation kept you from meetings, work, or from getting things needed for daily living? No 09/11/2023 Nutrition Answer Date Recorded On average, how many serving s of fruits and vegetables do you eat per day (serving size is equal to 1 cup or approximately the size of a tennis ball)? 0-2 09/11/2023 Dental Answer Date Recorded Dental: Regular Dentist Yes 02/11/20 Employment Answer Date Recorded Employment status Retired 09/11/2023 Housing Stability Answer Date Recorded What is your living situation today? I have a [facility] place to live 09/11/2023 Education Answer Date Recorded What is the highest level of school you have completed or the highest degree you have received? 12th grade 12/28/2020 Sex and Gender Information Value Date Recorded Sex Assigned at Female 02/16/2019 8:52 AM CDT Gender Identity Female 02/16/2019 8:52 AM CDT Sexual Orientation Straight 02/16/2019 8: 52 AM CDT Last Filed Vital Signs Vital Sign Reading Time Taken Comments Blood Pressure 127/79 02/22/2016 7:50 AM CDT Vital sign result from Clinical Notes. Pulse 56 02/22/2016 7:50 AM CDT Vi jose sign result from Clinical Notes. Temperature - - Respiratory Rate - - Oxygen Saturation - - Inhaled Oxygen Concentration - - Weight - - Height - - Body Mass Index - - Plan of Treatment Upcoming Encounters Date Type Department Care Team (Late st Contact Info) Description 04/22/2024 11:15 AM HOME DEMONSTRATION AGENT Office Visit Department of Dermatology in [address] [address] Javier Gonzalez M.D. [address] [place] [address] Discharge Disposition: Home or Self Care Procedures Procedure Name Priority Date/Time Associated Diagnosis Comments BI BREAST SCREENING UNILATERAL Routine 05/26/2005 2:52 PM HOME DEMONSTRATION AGENT from Last 3 Months or Most Recently Relevant to Health Maintenance Results * BI Breast Screening (05/26/2005 2:52 PM HOME DEMONSTRATION AGENT) Anatomical Region Laterality Modality Breast N/A Mammography 05/26/2005 2:52 PM HOME DEMONSTRATION AGENT Narrative 05/27/2005 7:18 AM HOME DEMONSTRATION AGENT 26-May-2005 14:52:00 ??Exam: MG /Screening Exam Indications: ?? ORIGINAL REPORT - 27-May-2005 07:18:00 Bilateral screening mammogram shows the breasts to be diffusely heterogeneously dense with scattered benign-appearing calcifications. There are no specific mammographic findings of malignancy. No interval change dating back to 04-25-03. R0: Computer-aided detection equipment was used during interpretation. ?? Assessment: Negative. P1, D2, M1, L1S Electronically signed by: ?? Beth Gregory, ??Renetta.O. ??[id number] 27-May-2005 07:18 Procedure Note Cydney Gregory D.O. - 08/01/2017 26-May-2005 14:52:00 Exam: MG /Screening Exam Indications: ORIGINAL REPORT - 27-May-2005 07:18:00 Bilateral screening mammogram shows the breasts to be diffuselyheterogeneously dense with scattered benign-appearing calcifications.There are no specific mammographic findings of malignancy. No intervalchange dating back to 04-25-03. R0: Computer-aided detection equipment was used during interpretation. Assessment: Negative. P1, D2, M1, L1S Electronically signed by: Beth Gregory D.O. [id number] 27-May-2005 07:18 Zoe RICHARDSG BI PROCEDURES from Last 3 Months or Most Recently Relevant to Health Maintenance
--- OUTSIDE RECORDS SUMMARY | 2024-01-08 07:26 | XMS_ITS ---
Author Organization [facility] Address [address] [place] [address] Care Team Providers Care Engineering Design Manager Name Role Phone Unavailable Unavailable Unavailable Surgery Details Not on file Complications Check Surgery Details section. Procedure Estimated Blood Loss Check Surgery Details section. Procedure Findings Check Surgery Details section. Procedure Specimens Taken Check Surgery Details section.
--- OUTSIDE RECORDS SUMMARY | 2024-01-08 07:26 | XMS_ITS | Clinical Summary ---
Author Organization [facility] Address [address] [place] [address] Care Team Providers Care Card Hand Name Role Phone Unavailable Primary Care Provider Unavailabl e Source Comments Patient records contain information from all sites at [facility]. For routine questions regarding patient records, call [phone] during business hours, M-F 8:00 AM - 5:00 PM Central Time. Record requests for emergency care only can be directed to [phone] at any time.[facility] Allergies No known active allergies Medications Medication [...] 2 tablets by mouth daily. 01/20/2021 Active Family History Medical History Relation Name Comments Lung cancer Brother 1 Pato Fink Skin cancer Brother 1 Pato Fink Dementia Brother 2 Peter Skin cancer Brother 2 Peter Dementia Father Rosalio Dementia Mother Annamarie Dementia Sister Pat Relation Name Status Comments Brother 1 Pato Fink Brother 2 Peter Father Rosalio Mother Annamarie Sister Pat Social History Tobacco Use Types Packs/Day Years Used Date Smoking Tobacco: Never Smokeless Tobacco: Never Tobacco Cessation:Counseling Given: Not Answered Alcohol Use Standard Drinks/Week Comments Yes 2 (1 standard drink = 0.6 oz pur e alcohol) [facility] Utilities Answer Date Recorded In the past 12 months has th e electric, gas, oil, or water company threatened to shut off services in your [...] week 02/10/2022 How often do you attend chur or adventist services? More than 4 times per year 02/10/2022 Do you belong to any clubs o r organizations such as rastafarian groups, unions, fraternal or athletic groups, or [...] and heating? Not hard at all 02/10/2022 [facility] [place] of Occupat ional Health - Occupational Stress [...] Date Recorded Dental: Regular Dentist Yes 02/11/20 22 Employment Answer Date Recorded Employment status Retired 09/11/2023 Housing Stability Answer Date Recorded What is your living situation today? I have a [facility] place to live 09/11/2023 Education Answer Date [...] st Contact Info) Description 04/22/2024 11:15 AM ENDLESS STEAMER TENDER Office Visit Department of Dermatology in [address] [phone] Javier Gonzalez M.D. [address] [place] [address] Discharge Disposition: Home or Self Care Health Maintenance Due Date Last Done Comments Bone Density Scan (Osteoporo sis Screen) 1952 CT Colonography 1952 Cologuard 1952 FIT 1952 Fasting Glucose for Diabetes Screening 1950 Hepatitis C Screening 1950 Mammogram 05/26/2006 05/26/2005, 12/2003, 04/25/2003 Colonoscopy 05/22/2013 05/22/2003 Colorectal Cancer Screening 05/22/2013 Depression Screening (Annual PHQ-2) 05/01/2023 Fall Risk Screen (Annual) 05/01/2023 COVID-19 Vaccine (5 - 2022-2 4 season) 2023 10/01/2021, 02/26/2021, 07/16/2020, Additional history exists Influenza Vaccine (#1) 2024 , 03/01/2021, 02/20/2020, Additional history exists DTaP,Tdap,and Td Vaccines (3 - Td or Tdap) 03/01/2031 03/01/2021, 07/05/2011, 08/21/1992 Pneumococcal vaccine (65+ years) Completed 02/15/20 19, 09/04/2017 Zoster Vaccines Completed 04/21/2019, 12/2018, 02/01/2019, Additional history exists Procedures Procedure Name Priority Date/Time Associated Diagnosis Comments BI BREAST SCREENING UNILATERAL Routine 05/26/2005 2:52 PM ENDLESS STEAMER TENDER from Last 3 Months or Most Recently Relevant to Health Maintenance Results * BI Breast Screening (05/26/2005 2:52 PM ENDLESS STEAMER TENDER) Anatomical Region Laterality Modality Breast N/A Mammography 05/26/2005 2:52 PM ENDLESS STEAMER TENDER Narrative 05/27/2005 7:18 AM ENDLESS STEAMER TENDER 26-May-2005 14:52:00 ??Exam: MG /Screening Exam Indications: [...] L1S Electronically signed by: ?? Beth Gregory, ??D.O. ??[id number] 27-May-2005 07:18 Procedure Note Cydney Gregory [...] Beth Gregory D.O. [id number] 27-May-2005 07:18 Zoe WEEMS BI PROCEDURES from Last 3 Months or Most Recently Relevant to Health Maintenance
--- NOTE | 2024-01-08 08:37 | W.ANESCHARGE ---
Anesthesia Charges Start Date/Time Anesthesia Start Date: 01/08/24 Anesthesia Start Time: 08:10 Stop Date/Time Anesthesia Stop Date: 01/08/24 Anesthesia Stop Time: 08:38
--- NOTE | 2024-01-08 09:34 | W.ANESCHARGE ---
Anesthesia Charges Start Date/Time Anesthesia Start Date: 01/08/24 Anesthesia Start Time: 08:10 Stop Date/Time Anesthesia Stop Date: 01/08/24 Anesthesia Stop Time: 08:38 Summary Extremes of Age - Over 70 or under 1: MDA
== END 2024-01-08 07:25 | disposition home or self-care (01) ==
LOC: OP CLINIC 07:25
PROVIDERS: PCP Internal Medicine; Visit Provider Surgery
DX: Z86.010 Personal history of colon polyps (principal)
CPT/HCPCS: 00811; 45385; 88305; 99100; J2704

== ENCOUNTER 2024-03-20 07:40 | Outpatient (CLI) | payer MEDICARE, BC, SELFPAY ==
--- OUTSIDE RECORDS SUMMARY | 2024-03-23 11:35 | XMS_ITS | Clinical Summary ---
Author Organization [facility] Address [address] [place] [address] Care Team Providers Care Power Reactor Operator Name Role Phone Unavailable Primary Care Provider Unavailabl e Source Comments Patient records contain information from all sites at [facility]. For routine questions regarding patient records, call [phone] during business hours, M-F 8:00 AM - 5:00 PM Central Time. Record requests for emergency care only can be directed to [phone] at any time.[facility] Allergies No known active allergies Medications simvastatin (ZOCOR) 10 mg tablet Take by mouth daily. 3 11/05/2017 Active multivitamin tablet Take 1 tablet by mouth daily. Active fish oil 500 mg capsule Take 500 mg by mouth daily. Active calcium carbonate-vitam in D3 600 mg-10 mcg (400 unit) tablet,chewable Chew. Acti ve alendronate (FOSAMAX) 70 mg tablet Take 70 mg by mouth once a week. 0 02/14/2019 Active vit C/E/Zn/coppr/merced tein/zeaxan (PRESERVISION AREDS-2 ORAL) Take 2 tablets by [...] drink = 0.6 oz pur e alcohol) [facility] Utilities Answer Date Recorded In the past [...] How often do you attend chur or roman catholic services? More than 4 times per year 02/10/2022 Do you belong to any clubs o r organizations such as lutheran groups, unions, fraternal or athletic groups, or [...] and heating? Not hard at all 02/10/2022 [facility] - Occupational Stress Questionnaire Answer Date [...] your living situation today? I have a [facility] place to live 09/11/2023 Education Answer Date Recorded What is the highest level of school you have completed or the highest degree you have received? 12th grade 12/28/2020 Comments Unknown Sex and Gender Information Value Date Recorded Sex Assigned at Female 02/16/2019 8:52 AM CDT Legal Sex Female 11:04 PM ELECTRONIC SCIENCE TEACHER Gender Identity Female 02/16/2019 8:52 AM CDT [...] st Contact Info) Description 04/22/2024 11:15 AM ELECTRONIC SCIENCE TEACHER Office Visit Department of Dermatology in [address] [phone] Javier Gonzalez M.D. [address] [place] [address] Discharge Disposition: Home or Self Care Health Maintenance Due Date Last Done Comments Bone Density Scan (Osteoporosis Screen) 1952 CT Colonography 1952 Cologuard 1952 FIT 1952 Fasting Glucose for Diabetes Screening 1950 Hepatitis C Screening 1950 Mammogram 05/26/2006 05/26/2005, 12/12/2003, 04/25/2003 Colonoscopy 05/22/2013 05/22/2003 Colorectal Cancer Screening 05/22/2013 Depression Screening (Annual PHQ-2) 05/01/2023 Fall Risk Screen (Annual) 05/01/2023 COVID-19 Vaccine ( season) 2023 10/01/2021, 02/26/2021, 07/16/2020, Additional history exists Influenza Vaccine (#1) 2024 2, 03/01/2021, 02/20/2020, Additional history exists DTaP,Tdap,and Td Vaccines (3 - Td or Tdap) 03/01/2031 03/01/2021, 07/05/2011, 08/21/1992 Pneumococcal vaccine (65+ years) Completed 02/14/2019, 09/04/2017 Zoster Vaccines Completed 04/21/2019, 12/2018, 02/01/2019, Additional history exists IPV Vaccines Aged Out No longer eligi ble based on patient's age to complete this topic Procedures Procedure Name Priority Date/Time Associated Diagnosis Comments BI BREAST SCREENING UNILATERAL Routine 05/26/2005 2:52 PM ELECTRONIC SCIENCE TEACHER from Last 3 Months or Most Recently Relevant to Health Maintenance Results * BI Breast Screening (05/26/2005 2:52 PM ELECTRONIC SCIENCE TEACHER) Anatomical Region Laterality Modality Breast N/A Mammography 05/26/2005 2:52 PM ELECTRONIC SCIENCE TEACHER Narrative 05/27/2005 7:18 AM ELECTRONIC SCIENCE TEACHER 26-May-2005 14:52:00 Exam: MG /Screening Exam Indications: [...] by: Beth Gregory D.O. [id number] 27-May-2005 07:18 Procedure Note Cydney Gregory D.O. [...] [id number] 27-May-2005 07:18 Zoe WEEMS BI PROCEDURES Final Res ult from Last 3 Months or Most Recently Relevant to Health Maintenance Insurance [facility] MEDICARE
--- OUTSIDE RECORDS SUMMARY | 2024-03-23 11:35 | XMS_ITS ---
Author Organization [facility] Address [address] [place] [address] Care Team Providers Care Rail Signal Mechanic Name Role Phone Unavailable Unavailable Unavailable Surgery Details Not on file Complications Check Surgery Details section. Procedure Estimated Blood Loss Check Surgery Details section. Procedure Findings Check Surgery Details section. Procedure Specimens Taken Check Surgery Details section.
--- OUTSIDE RECORDS SUMMARY | 2024-03-23 11:35 | XMS_ITS | Referral Summary ---
Author Organization [facility] Address [address] [place] [address] Care Team Providers Care Fabric Lay Out Worker Name Role Phone Unavailable Primary Care Provider Unavailabl e Source Comments Patient records contain information from all sites at [facility]. For routine questions regarding patient records, call [phone] during business hours, M-F 8:00 AM - 5:00 PM Central Time. Record requests for emergency care only can be directed to [phone] at any time.[facility] Allergies No known active allergies Medications simvastatin [...] drink = 0.6 oz pur e alcohol) [facility] Utilities Answer Date Recorded In the past 12 months has [facility] [employer], [employer], or [employer] threatened to shut off services in your [...] How often do you attend chur or baptist services? More than 4 times per year 02/10/2022 Do you belong to any clubs o r organizations such as muslim groups, unions, fraternal or athletic groups, or [...] and heating? Not hard at all 02/10/2022 [facility] [place] of Occupat ional Health - Occupational Stress [...] money to buy more. Never true 09/11/19 Within the past 12 months, t he [...] your living situation today? I have a [facility] place to live 09/11/2023 Education Answer Date Recorded What is the highest level of school you have completed or the highest degree you have received? 12th grade 12/28/2020 Comments Unknown Sex and Gender Information Value Date Recorded Sex Assigned at Female 02/16/2019 8:52 AM CDT Legal Sex Female 11:04 PM ARTIFICIAL FLOWERS STARCHER Gender Identity Female 02/16/2019 8:52 AM CDT [...] st Contact Info) Description 04/22/2024 11:15 AM ARTIFICIAL FLOWERS STARCHER Office Visit Department of Dermatology in [address] [address] Javier Gonzalez M.D. [address] [place] [address] Discharge Disposition: Home or Self Care Procedures Procedure Name Priority Date/Time Associated Diagnosis Comments BI BREAST SCREENING UNILATERAL Routine 05/26/2005 2:52 PM ARTIFICIAL FLOWERS STARCHER from Last 3 Months or Most Recently Relevant to Health Maintenance Results * BI Breast Screening (05/26/2005 2:52 PM ARTIFICIAL FLOWERS STARCHER) Anatomical Region Laterality Modality Breast N/A Mammography 05/26/2005 2:52 PM ARTIFICIAL FLOWERS STARCHER Narrative 05/27/2005 7:18 AM ARTIFICIAL FLOWERS STARCHER 26-May-2005 14:52:00 Exam: MG /Screening Exam Indications: [...] Beth Gregory D.O. [id number] 27-May-2005 07:18 Zoe Mcintosh M.D. IMG BI PROCEDURES Final Res ult from Last 3 Months or Most Recently Relevant to Health Maintenance Insurance [facility] MEDICARE
== END 2024-03-20 07:41 | disposition home or self-care (01) ==
LOC: NFLDREF 03-23 11:33
PROVIDERS: PCP Internal Medicine; Referring Provider Internal Medicine; Visit Provider Internal Medicine
DX: E78.9 Disorder of lipoprotein metabolism, unspecified (principal); M81.0 Age-related osteoporosis without current pathological fracture; Z13.1 Encounter for screening for diabetes mellitus; Z13.6 Encounter for screening for cardiovascular disorders
CPT/HCPCS: 80061; 82306; 82947

== ENCOUNTER 2024-03-25 08:48 | Outpatient (CLI) | payer MEDICARE, BC, SELFPAY ==
--- OUTSIDE RECORDS SUMMARY | 2024-03-25 08:50 | XMS_ITS ---
Author Organization [facility] Address [address] [place] [address] Care Team Providers Care Bedspring Assembler Name Role Phone Unavailable Unavailable Unavailable Surgery Details Not on file Complications Check Surgery Details section. Procedure Estimated Blood Loss Check Surgery Details section. Procedure Findings Check Surgery Details section. Procedure Specimens Taken Check Surgery Details section.
--- OUTSIDE RECORDS SUMMARY | 2024-03-25 08:50 | XMS_ITS | Clinical Summary ---
Author Organization [facility] Address [address] [place] [address] Care Team Providers Care Violin Repairer Name Role Phone Unavailable Primary Care Provider Unavailabl e Source Comments Patient records contain information from all sites at [facility]. For routine questions regarding patient records, call [phone] during business hours, M-F 8:00 AM - 5:00 PM Central Time. Record requests for emergency care only can be directed to [phone] at any time.[facility] Allergies No known active allergies [...] drink = 0.6 oz pur e alcohol) [facility] Utilities Answer Date Recorded In the [...] How often do you attend chur or scientology services? More than 4 times per year 02/10/2022 Do you belong to any clubs o r organizations such as christianity groups, unions, fraternal or athletic groups, or [...] and heating? Not hard at all 02/10/2022 [facility] [place] [facility] - Occupational Stress Questionnaire Answer [...] living situation today? I have a [place] place to live 09/11/2023 Education Answer Date Recorded What is the highest level of school you have completed or the highest degree you have received? 12th grade 12/28/2020 Comments Unknown Sex and Gender Information Value Date Recorded Sex Assigned at Female 02/16/2019 8:52 AM CDT Legal Sex Female 11:04 PM REHABILITATION ASSISTANT Gender Identity Female 02/16/2019 8:52 AM CDT [...] st Contact Info) Description 04/22/2024 11:15 AM REHABILITATION ASSISTANT Office Visit Department of Dermatology in [address] [address] Javier Gonzalez M.D. [address] [place] [address] Discharge Disposition: Home or Self Care Health [...] BREAST SCREENING UNILATERAL Routine 05/26/2005 2:52 PM REHABILITATION ASSISTANT from Last 3 Months or Most Recently Relevant to Health Maintenance Results * BI Breast Screening (05/26/2005 2:52 PM REHABILITATION ASSISTANT) Anatomical Region Laterality Modality Breast N/A Mammography 05/26/2005 2:52 PM REHABILITATION ASSISTANT Narrative 05/27/2005 7:18 AM REHABILITATION ASSISTANT 26-May-2005 14:52:00 Exam: MG /Screening Exam Indications: [...] Most Recently Relevant to Health Maintenance Insurance [facility] MEDIC[facility]
--- OUTSIDE RECORDS SUMMARY | 2024-03-25 08:50 | XMS_ITS | Referral Summary ---
Author Organization [facility] Address [address] [place] [address] Care Team Providers Care Film Developing Machine Operator Name Role Phone Unavailable Primary Care Provider Unavailabl e Source Comments Patient records contain information from all sites at [facility]. For routine questions regarding patient records, call [phone] during business hours, M-F 8:00 AM - 5:00 PM Central Time. Record requests for emergency care only can be directed to [phone] at any time.[facility] Allergies No known active allergies Medications simvastatin [...] drink = 0.6 oz pur e alcohol) [facility] Utilities Answer Date Recorded In the past 12 months has [facility] [employer], [employer], or As Seen on TV threatened to shut off services in your [...] How often do you attend chur or buddhist services? More than 4 times per year 02/10/2022 Do you belong to any clubs o r organizations such as holiness groups, unions, fraternal [...] and heating? Not hard at all 02/10/2022 [facility] [place] of Occupat ional Health - Occupational Stress [...] your living situation today? I have a [facility] place to live 09/11/2023 Education Answer Date Recorded What is the highest level of school you have completed or the highest degree you have received? 12th grade 12/28/2020 Comments Unknown Sex and Gender Information Value Date Recorded Sex Assigned at Female 02/16/2019 8:52 AM CDT Legal Sex Female 11:04 PM COMMUNICATIONS DEPARTMENT CHAIR Gender Identity Female 02/16/2019 8:52 AM CDT [...] st Contact Info) Description 04/22/2024 11:15 AM COMMUNICATIONS DEPARTMENT CHAIR Office Visit Department of Dermatology in [address] [address] Javier Gonzalez M.D. [address] [place] [address] Discharge Disposition: Home or Self Care Procedures Procedure Name Priority Date/Time Associated Diagnosis Comments BI BREAST SCREENING UNILATERAL Routine 05/26/2005 2:52 PM COMMUNICATIONS DEPARTMENT CHAIR from Last 3 Months or Most Recently Relevant to Health Maintenance Results * BI Breast Screening (05/26/2005 2:52 PM COMMUNICATIONS DEPARTMENT CHAIR) Anatomical Region Laterality Modality Breast N/A Mammography 05/26/2005 2:52 PM COMMUNICATIONS DEPARTMENT CHAIR Narrative 05/27/2005 7:18 AM COMMUNICATIONS DEPARTMENT CHAIR 26-May-2005 14:52:00 Exam: MG /Screening Exam Indications: [...] Most Recently Relevant to Health Maintenance Insurance [facility] MED[facility]
--- NOTE | 2024-03-25 09:15 | CRLHL7_ITS ---
For Patients: As a result of the Century Cures Act, medical imaging exams and procedure reports are released immediately into your electronic medical record. You may view this report before your referring provider. If you have questions, please contact your health care provider. BILATERAL SCREENING MAMMOGRAM WITH COMPUTER-AIDED DETECTION AND TOMOSYNTHESIS TECHNIQUE: CC and MLO views were obtained. These mammographic images have been obtained using full-field digital technique. These mammographic images were interpreted with the benefit of computer-aided detection. Breast Tomosynthesis was used in this interpretation. COMPARISON FILM: 03/15/23, 03/03/22, 02/22/21. FINDINGS: The breasts are heterogeneously dense, which may obscure small masses IMPRESSION: There is no radiographic evidence for malignancy. ASSESSMENT: BI-RADS Category 2: Benign RECOMMENDATION: Routine screening mammogram in 1 year. A lay language report of this examination will be provided to the patient. Frederick Menon M.D. Diagnostic Radiologist [email or web address] IRA/Dictated by: Frederick Menon MD @ 03/25/2024 12:30:00 PM (Electronically Signed)
== END 2024-03-25 08:49 | disposition home or self-care (01) ==
LOC: MAMMO 08:48
PROVIDERS: PCP Internal Medicine; Visit Provider Internal Medicine
DX: Z12.31 Encounter for screening mammogram for malignant neoplasm of breast (principal); R92.333 Mammographic heterogeneous density, bilateral breasts
CPT/HCPCS: 77063; 77067

== ENCOUNTER 2025-03-25 08:00 | Outpatient (CLI) | payer MEDICARE, BC, SELFPAY | END 2025-03-25 08:01 | disposition home or self-care (01) | LOC: NFLDREF 03-29 18:30 | PROVIDERS: PCP Internal Medicine; Referring Provider Internal Medicine; Visit Provider Internal Medicine | DX: M85.80 Other specified disorders of bone density and structure, unspecified site (principal); E78.9 Disorder of lipoprotein metabolism, unspecified; Z13.1 Encounter for screening for diabetes mellitus | CPT/HCPCS: 80061; 82306; 82947 ==

== ENCOUNTER 2025-04-29 08:00 | Outpatient (CLI) | payer MEDICARE, BC, SELFPAY ==
--- NOTE | 2025-04-29 08:15 | CRLHL7_ITS ---
For Patients: As a result of the Century Cures Act, medical imaging exams and procedure reports are released immediately into your electronic medical record. You may view this report before your referring provider. If you have questions, please contact your health care provider. INDICATION: BILATERAL SCREENING MAMMOGRAM, ASYMPTOMATIC 74 Y/O FEMALE COMPARISON: 03/25/2024, 03/15/2023, 03/03/2022 TECHNIQUE: Digital mammogram in CC and MLO projections including computer-aided detection (CAD) and tomosynthesis. BREAST COMPOSITION: The breasts are heterogeneously dense, which may obscure small masses. FINDINGS: No suspicious findings. ASSESSMENT: BI-RADS 2 Benign RECOMMENDATION: Annual screening mammogram. A lay language report of this examination will be provided to the patient. Dictated by: Frederick Menon MD @ 04/29/2025 09:56:27 (Electronically Signed)
== END 2025-04-29 08:01 | disposition home or self-care (01) ==
LOC: MAMMO 08:01
PROVIDERS: PCP Internal Medicine; Visit Provider Internal Medicine
DX: Z12.31 Encounter for screening mammogram for malignant neoplasm of breast (principal); R92.333 Mammographic heterogeneous density, bilateral breasts
CPT/HCPCS: 77063; 77067